=== PATIENT | male | born 1985 | race Caucasian/White ===

== ENCOUNTER 2025-08-23 16:42 | Emergency (ER) | payer OTHER, SELFPAY ==
[2025-08-23 16:47] VITALS: BP 114/63; PULSE 83; TEMP 36.6; O2SAT 97; BMI 25.1
--- NOTE | 2025-08-23 17:14 | US_ITS ---
The [address] [address] Patient Name: KEZIA BOWMAN MRN: [id number] date: 1985 Sex: M Assigned Patient Location: ED.MAIN Current Patient Location: ED.MAIN Accession/Order Number: [id number] Exam Date: 08/23/2025 17:24 Report Date: 08/23/2025 18:35 At the request of: EMILY ROWAN Procedure: US breast LT limited Targeted ultrasound left breast US/US breast LT limited IMPRESSION: Erythematous lump COMPARISON: None FINDINGS: Within the left retroareolar breast, there is a hypoechoic ovoid focus of atypical echogenicity with peripheral enhancement. Questionable posterior acoustic enhancement. This measures 2.4 x 0.7 x 2.5 cm in size. IMPRESSION: Abnormally within the left breast may represent phlegmon or abscess however warrants further evaluation. Recommend mammography and follow-up ultrasound BI-RADS 0 Impression dictated by: Nakul Amato M.D. 08/23/2025 6:35 PM Dictation Location: [place] [address] Electronically authenticated by: [id number] Y Date: 08/23/2025 18:35
--- NOTE | 2025-08-23 17:16 | ED.GENADUL1 ---
HPI HPI - General Adult General Chief complaint: Skin/Abscess/Foreign Body Stated complaint: INFECTION ON HIS CHEST Time Seen by Provider: 08/23/25 16:45 Source: patient Mode of arrival: walk-in Limitations: no limitations History of Present Illness HPI narrative: Patient presents to the emergency department with a painful lump to the left breast at the 9:00 portion to the nipple with surrounding erythema that has been ongoing for the past 1+ weeks. Patient states that he saw his primary care doctor for this and was prescribed doxycycline which he is almost finished with the course and pain and swelling continue. Patient denies any nipple discharge. Patient complains of subjective fever and chills but no documented fever. Patient denies any incision to the area does state that he has been squeezing it to try to express anything from it. Patient denies any associated shortness of breath. Onset (ago): week(s) (1) Location: Reports chest Pain Consistency: Reports constant Relieving factors: Reports none Related Data Previous Rx's ?Medication ?Instructions ?Recorded amoxicillin 875 mg-potassium 1 tab PO BID #20 tabs 08/23/25 clavulanate 125 mg tablet etodolac 400 mg tablet (Lodine) 400 mg PO Q12H PRN pain #14 tabs 08/23/25 sulfamethoxazole 800 1 tab PO BID 10 days #20 tabs 08/23/25 mg-trimethoprim 160 mg tablet (Bactrim DS) Allergies Allergy/AdvReac Type Severity Reaction Status Date / Time No Known Drug Allergies Allergy Verified 08/23/25 16:50 Review of Systems ROS Status of ROS 10 or more systems reviewed and unremarkable except as noted in history and below Constitutional Reports: chills Cardiovascular Denies: palpitations or shortness of breath when lying down Respiratory Denies: shortness of breath Gastrointestinal Denies: abdominal pain or vomiting Integumentary/Breast Reports: breast pain, breast swelling and breast mass; Denies: nipple discharge Neurological Denies: headache PFSH PFSH Social History Little interest or pleasure in doing things: not at all Feeling down, depressed, or hopeless: not at all Exam Constitutional Vital Signs, click to edit/add: Last Vital Signs Temp 97.8 F 08/23/25 16:47 Pulse 83 08/23/25 16:47 Resp 16 08/23/25 16:47 BP 114/63 08/23/25 16:47 Pulse Ox 97 08/23/25 16:47 O2 Del Method Room Air 08/23/25 16:47 Documenting provider has reviewed patient's vital signs: yes Common normals: no apparent distress, average body habitus and oriented x3 HENMT Common normals: normocephalic Chest Chest images (male):  1. Localized induration of 1 cm without obvious fluctuance at approximately additional 1 cm of erythema Respiratory Common normals: normal respiratory effort Cardio Common normals: regular rate, regular rhythm and S1 normal heart sound GI Common normals: Normal to inspection, nondistended, normoactive bowel sounds present Course Vital Signs Vital signs: Vital Signs Temperature 97.8 F 08/23/25 16:47 Pulse Rate 83 08/23/25 16:47 Respiratory Rate 16 08/23/25 16:47 Blood Pressure 114/63 08/23/25 16:47 Pulse Oximetry 97 08/23/25 16:47 Oxygen Delivery Method Room Air 08/23/25 16:47 Temperature 97.8 F 08/23/25 16:47 Pulse Rate 83 08/23/25 16:47 Respiratory Rate 16 08/23/25 16:47 Blood Pressure 114/63 08/23/25 16:47 Pulse Oximetry 97 08/23/25 16:47 Oxygen Delivery Method Room Air 08/23/25 16:47 Medical Decision Making MDM Narrative Medical decision making narrative: Patient presented to the emergency department with a 1+ week history of abscess to the left breast at the 9:00 portion of the breast lateral to the nipple. Patient already finished a course of doxycycline without improvement. He was supposed to have an outpatient ultrasound but did not make the appointment and needed to reschedule. Patient states that the pain is worsening rather than improving. He denied any fevers associated with the symptoms. Ultrasound was obtained that does show abscess with purulent material so incision and drainage was performed while in the emergency department. Packing was placed and wound culture obtained. Patient will be treated for pain, with antibiotics and close PCP follow-up. Differential Diagnosis Differential Diagnosis: Abscess, cyst, cellulitis Imaging Data US - abdomen: Attestation: I personally reviewed and interpreted this imaging study as follows: (Abscess) Radiologist's impression: ITS Impressions Breast Ultrasound 08/23/25 17:14 IMPRESSION: Erythematous lump COMPARISON: None FINDINGS: Within the left retroareolar breast, there is a hypoechoic ovoid focus of atypical echogenicity with peripheral enhancement. Questionable posterior acoustic enhancement. This measures 2.4 x 0.7 x 2.5 cm in size. IMPRESSION: Abnormally within the left breast may represent phlegmon or abscess however warrants further evaluation. Recommend mammography and follow-up ultrasound BI-RADS 0 Impression dictated by: Nakul Amato M.D. 08/23/2025 6:35 PM Dictation [facility] Electron[facility] authenticated by: [id number] Y Date: 08/23/2025 18:35 Discharge Plan Discharge Chief Complaint: Skin/Abscess/Foreign Body Clinical Impression: Abscess of skin or subcutaneous tissue Patient Disposition: Home, Self-Care Time of Disposition Decision: 18:15 Condition: Good Mode of Transportation: Private Vehicle Prescriptions / Home Meds: New amoxicillin-pot clavulanate 875-125 mg tablet 1 tab PO BID Qty: 20 0RF sulfamethoxazole-trimethoprim [Bactrim DS] 800-160 mg tablet 1 tab PO BID 10 Days Qty: 20 0RF etodolac [Lodine] 400 mg tablet 400 mg PO Q12H PRN (Reason: pain) Qty: 14 0RF Print Language: Estonian Instructions: Abscess (ED), Incision and Drainage (ED) Referrals: Tana Artis NP [Primary Care Provider, Family Practice] - 1 week Discharge Date/Time: 08/23/25 18:51 Procedures ED ID Incision & Drainage I&D Type: abcess Site: chest (left breast) Side (if applicable): left Sedation/analgesia: none Anesthetic used: with epi Technique: incised with #11 blade Amount of fluid (mL): 3 Irrigation: Yes Packing used: plain Complications: pain
--- OUTSIDE RECORDS SUMMARY | 2025-08-23 17:27 | XMS_ITS | Patient Health Record ---
Author Organization [facility] Address [address] [place] [address] Care Team Providers Care Survey Research Professor Name Role Phone Gilbert Rojas [phone] Allergies Allergen (clinical drug ingredient) Drug/Non Drug Allergy documented on EMR Reaction Allergy Type Onset Date Status Environmental Allergies (uncoded)UnknownAllergyActive Reason For Referral No Information Medications Medication SIG (Take, Route, Frequency, Duration) Notes Start Date End Date Status Remeron 15 mg ORAL REMERON Not-TakingProtonix 20 mgORALPROTONIXNot-TakingHydrOXYzine Hydrochloride hydrochloride 25 mgtake 1 tablet by oral route 4 times every day ORALHYDROXYZINE HCLNot-TakingCarafateActiveSymbicort 80 mcg-4.5 mcg/inhINHALATIONSYMBICORTActive traZODoneTrazodoneNot-TakingSingulair 10 mgORALSINGULAIRActiveZyPREXA 5 mgORAL ZYPREXANot-TakingMobic 15 mg1 tab(s) orally once a day for 30 days11/16/2023 ActivePriLOSECActiveNaproxen 500 mgORALNAPROXENNot-TakingMedrol Dosepak 4 mgas jzhuzepl62/17/2024ctivealbuterolActiveClaritin 10 mgORALCLARITINActiveProAir HFA 90 mcg/inhinhale 2 puff by inhalation route every 4 - 6 hours as needed INHALATIONPROAIR HFANot-TakingDepakote (obsolete) 500 mgORALDEPAKOTENot-Taking Social History Tobacco Use: Social History Observation Description Date Details (start date - stop date) Current Smoker NA - NA Smoking History Question Answer Notes Smoking Status Current Smoker Problems Problem Type SNOMED Code ICD Code Onset Dates Problem Status W/U Status Risk Notes Problem 954908284547674 Primary osteoarthritis of left knee (M17.12) Activeconfirmed Plan Of Treatment Pending Test Test Name Order Date SCC- KNEE 4 VIEW LEFT-05014 11/16/2023 Insurance Providers Payer Name Payer Address Payer Phone Subscriber Number Group Number Insured Name Patient Relationship to Insured Coverage Start Date Coverage End Date Medicaid [place] [place] [address] [place] [phone] [id number] Mady BOWMAN - patient is the insured Medical (General) History Medical History History ICD Code Asthma/COPD Respiratory problems:GI Problems:DepressionMental Illness:AnxietySurgical History Surgery Date(Month/Year) Toe ACL
--- OUTSIDE RECORDS SUMMARY | 2025-08-23 17:27 | XMS_ITS | Clinical Summary ---
Author Organization [facility] tem Address [id number] [address] [place] [address] Care Team Providers Care Priming Machine Operator Name Role Phone Santana Marcelo MD Primary Care Provider [phone] Allergies Active AllergyReactionsCriticalityNoted IcocRdbxbijhLvraj44/21/2017 Pt has an asthma attack Medications * This document contains information received from the source organization and may not represent a complete record from that organization. MedicationSigDispense QuantityRefillsLast FilledStart DateEnd DateStatus montelukast (SINGULAIR) 10 mg tablet Take 10 mg by mouth nightly. Active albuterol (PROVENTIL HFA;VENTOLIN HFA) 90 mcg/actuation inhaler Inhale 2 puffs every 6 (six) hours as needed for wheezing. 18 g 04/26/2020Active ipratropium-albuteroL (DUO-NEB) 0.5 mg-3 mg(2.5 mg base)/3 mL nebulizer Indications:Intermittent asthma with acute exacerbation, unspecified asthma severityInhale 3 mL by nebulization every 6 (six) hours as needed for wheezing. 75 mL 04/26/2020Active EPINEPHrine (EPIPEN) 0.3 mg/0.3 mL auto-injector Inject 0.3 mL (0.3 mg total) into the appropriate muscle as needed (anaphylaxis). 2 each 04/26/2020Active pantoprazole (PROTONIX) 20 mg EC tablet Take 1 tablet (20 mg total) by mouth daily. 20 tablet 08/24/2021ctive sucralfate (CARAFATE) 1 gram tablet Take 1 tablet (1 g total) by mouth 4 (four) times a day. 120 tablet 10/25/2021Active Active Problems ProblemNoted DateDiagnosed DateAsthma zvlvgsxroywh03/26/2020Bipolar disorder, zbzhmixgaat09/26/2017Bipolar I disorder, severe, current or most recent episode depressed, with melancholic dmhuivum06/08/2017Posttraumatic stress disorder 02/05/2017Cannabis lrmgeealuc94/08/1095Oxenea36/21/2017GERD (gastroesophageal reflux disease)01/18/2017ACL (anterior cruciate ligament) tear10/31/2015 Overview (03/04/2021): pt had the tear repaired in 2015 Schizoaffective disorderVisual impairment Overview (03/04/2021): pt wears glasses Peptic ulcerationArthritisADHD (attention deficit hyperactivity disorder) Resolved Problems ProblemNoted DateDiagnosed DateResolved DateBipolar disorder, unspecified Immunizations No known immunizations Family History Medical HistoryRelationNameCommentsHypertensionPaternal GrandfatherHeart disease Paternal UncleAnesthesia problemsNeg HxRelationNameStatusCommentsDaughterAlive FatherAliveMotherDeceasedPaternal GrandfatherPaternal UncleSonAlive Social History Tobacco UseTypesPacks/DayYears UsedDateSmoking Tobacco: Every DayCigarettes0.5 0.5Smokeless Tobacco: Never Tobacco Cessation:Ready to Q uit: Yes Alcohol UseStandard Drinks/WeekCommentsYes4 (1 standard drink = 0.6 oz pure alcohol)TWICE MONTHLYChildcareAnswerDate WxskklyqDwvahnpahHljkvbl50/12/2019 EmploymentAnswerDate FbvyoalfJxkoakrdtnKwkwfnh84/12/2019Purpose - LifeAnswerDate RecordedPurpose and direction in kxcoQfjboow88/11/2021ex and Gender Information ValueDate RecordedSex Assigned at BirthNot on fileLegal BmlJblj2906/05/2015 11:58 AM EDTGender IdentityNot on fileSexual OrientationNot on file Last Filed Vital Signs Vital SignReadingTime TakenCommentsBlood Ooaafjiz086/7410 4:30 PM EDT Aopqc2333 4:30 PM TJSCxqmdgjqycs24.7 ??C (98.1 ??F)08/24/2021 12:56 PM EDTRespiratory Gjjn1376 4:30 PM EDTOxygen Dtgnozgrur186%08/24/2021 4:30 PM EDTInhaled Oxygen Concentration--Iffbpo42.9 kg (185 lb)08/24/2021 12:56 PM EHUVjxuth175.3 cm (5' 11 )08/24/2021 12:56 PM EDTBody Mass Index25.81 12:56 PM EDT Plan of Treatment Health MaintenanceDue DateLast DoneCommentsDepression Bplbulola21/25/1995Tobacco Tufblqnny44/25/1995Adult BMI Snjacjfeo86/25/2001DTaP,Tdap and Td Vaccines (1 - Tdap)2002Influenza Lgibhxs4707/01/2025 Medical Devices ImplantedTypeAreaManufacturerDevice IdentifierShelf Expiration DateModel / Serial / LotMesh Open Prgrp Rect 15x9cm - Sna - [id number] Implanted:Qty: 1 on 03/13/2021 by Noe [facility]ario [facility]MeshLeft: InguinalMEDTRONIC USA10/30/2025 [id number] / NA / [id number] Insurance Advance Directives * Full Code (Latest Code Status on File) Date ActivatedDate InactivatedComments04/25/2020 10:52 AM04/26/2020 2:40 PM * Full Code Date ActivatedDate InactivatedComments05/24/2017 11:24 PM8 5:14 PM * Full Code Date ActivatedDate InactivatedComments01/18/2017 5:57 AM3 3:53 PM Care Teams Team MemberRelationshipSpecialtyStart DateEnd Date Santana Marcelo MD PCP - GeneralFamily Medicine03/19/19
--- OUTSIDE RECORDS SUMMARY | 2025-08-23 17:27 | XMS_ITS | Clinical Summary ---
Author Organization [facility] Address [address] [place] [address] Care Team Providers Care Corporate Logistics Manager Name Role Phone Santana Marcelo MD Primary Care Provider [phone] Santana Marcelo MD Unavailable Allergies No known active allergies Medications MedicationSigDispense QuantityRefillsLast FilledStart DateEnd DateStatus sucralfate (Carafate) 1 g tablet Indications:Gastro-esophageal reflux disease without esophagitis,Esophageal refluxTAKE 1 TABLET BY MOUTH FOUR TIMES A DAY 120 tablet 5123Active montelukast (Singulair) 10 MG tablet Indications:Allergic rhinitis due to pollenTAKE 1 TABLET BY MOUTH EVERYDAY AT BEDTIME 30 tablet 5034Active pantoprazole (Protonix) 40 MG EC tablet Indications:Gastroesophageal reflux disease without esophagitisTake 1 tablet (40 mg) by mouth in the morning. Take before meals. Do not crush, chew, or split.. 30 tablet 1104Active EPINEPHrine (Epipen) 0.3 MG/0.3ML injection syringe Indications:Allergic reaction, initial encounterInject 0.3 mL (0.3 mg) as directed 1 (one) time for 1 dose use as directed for allergic reaction and then call 911 2 each 4Active nortriptyline (Pamelor) 25 MG capsule Indications:Persistent disorder of initiating or maintaining sleepTAKE 1 CAPSULE BY MOUTH AT BEDTIME. 30 capsule 3055Active mometasone-formoterol (Dulera) 200-5 MCG/ACT inhaler Indications:Moderate persistent asthma without complication (HCC)Inhale 2 puffs in the morning and 2 puffs before bedtime. Rinse mouth with water after use to reduce aftertaste and incidence of candidiasis. Do not swallow. 13 g 5Active QUEtiapine (SEROquel) 25 MG tablet Indications:Bipolar 1 disorder, mixed, mild (HCC)Take 1 tablet (25 mg) by mouth at bedtime 30 tablet 5Active albuterol HFA 90 mcg/act inhaler Indications:Moderate persistent asthma without complication (HCC)TAKE 2 PUFFS BY MOUTH EVERY 4 HOURS NEEDED 18 g 5Active Active Problems ProblemNoted DateDiagnosed DateOther chest pain03/28/2025 Assessment & Plan (03/28/2025 2:06 PM EDT): Increased pain and unclear etiology. Check treadmill cardiolyte stress test to assess for ischemia. KADE (generalized anxiety disorder)05/31/2024 Assessment & Plan (05/31/2024 2:52 PM EDT): Symptoms stable and monitor. Bipolar 1 disorder, mixed, mild05/31/2024 Assessment & Plan (03/28/2025 2:05 PM EDT): Symptoms worse and start seroquel. Assessment & Plan (05/31/2024 2:51 PM EDT): Symptoms stable and monitor. Chronic left shoulder pain05/31/2024hronic pain of left knee05/31/2024 Gastroesophageal reflux ooyaoyf6605/31/2024 Assessment & Plan (03/28/2025 2:05 PM EDT): Symptoms controlled with medication and continue. Assessment & Plan (05/31/2024 2:52 PM EDT): Start protonix. Persistent disorder of initiating or maintaining sleep05/31/2024 Assessment & Plan (03/28/2025 2:06 PM EDT): Not sleeping well and try seroquel. Assessment & Plan (05/31/2024 2:52 PM EDT): Excess sedation from trazodone and try pamelor. Moderate persistent asthma without ujgrwypmctco39/01/2024 Assessment & Plan (03/28/2025 2:06 PM EDT): Breathing stable and resume dulera. Assessment & Plan (05/31/2024 2:52 PM EDT): Increased symptoms and try dulera. Allergic rhinitis due to gyjecv1505/31/2024 Assessment & Plan (05/31/2024 2:51 PM EDT): Symptoms controlled with medication and continue. Encounters DateTypeDepartmentCare PrxfHeugogtntnu14/22/2025Refill [facility] [address] [place] [address] Santana Marcelo MD Moderate persistent asthma without complication (HCC)from Last 3 Months Social History Tobacco UseTypesPacks/DayYears UsedDateSmoking Tobacco: Every DayCigarettes Smokeless Tobacco: Never Tobacco Cessation:Ready to Q uit: Not Asked; Counseling Given: Not Answered Sex and Gender InformationValueDate RecordedSex Assigned at BirthNot on file Legal IxuJjmi3601/12/2023 6:53 PM EDTGender IdentityNot on fileSexual Orientation Not on file Last Filed Vital Signs Vital SignReadingTime TakenCommentsBlood Qzycqkeh951/7405 1:39 PM EDT Fqfkv840203/28/2025 1:39 PM PYJLecptwvgggz83.2 ??C (97.1 ??F)03/28/2025 1:39 PM EDTRespiratory Krnm501103/28/2025 1:39 PM EDTOxygen Gwohoglact10%03/28/2025 1:39 PM EDTInhaled Oxygen Concentration--Jomelh37.6 kg (182 lb)03/28/2025 1:39 PM EDT Joylgo425.9 cm (6')03/28/2025 1:39 PM EDTBody Mass Index24.68003/28/2025 1:39 PM EDT Plan of Treatment Health MaintenanceDue DateLast DoneCommentsInfluenza Vaccine (#1)07/01/2025 08/01/2013 Insurance * Guarantor: Karson Prieto DAccount TypeRelation to PatientDate of BirthPhone Billing AddressPersonal/BkkqpwSjnk[address] [place] [address] Care Teams Team MemberRelationshipSpecialtyStart DateEnd Date Santana Marcelo MD [facility] - [facility] Santana Marcelo MD [address] [place] [address] PCP - [facility]10/31/24
[2025-08-23] MEDS: TRAMADOL HCL 50 MG TABLET PO (18:47)
[2025-08-23] MEDS: AMOXICILLIN/POT CLAV 875-125 MG TABLET 1 TAB PO (18:47)
[2025-08-23] MEDS: LIDOCAINE HCL 1%-EPINEPHRINE 1:100,000 20 ML MDV 5 ML INJ (18:48)
== END 2025-08-23 18:51 | disposition home or self-care (01) ==
PROVIDERS: Emergency Provider Student in an Organized Health Care Education/Training Program; PCP Nurse Practitioner
DX: N61.1 Abscess of the breast and nipple (principal)
CPT/HCPCS: 10060; 76642; 87070; 87075; 99284